=== PATIENT | male | born 1965 | race African-American/Black ===

== ENCOUNTER 2024-03-13 06:36 | Day surgery (SDC) | payer OTHER ==
[~2024-03-13] VITALS: Ht 172.7 cm; Wt 111.9 kg
[~2024-03-13 06:36] MED LIST: LR 1,000 ML IV SCH
[2024-03-13 08:18] VITALS: BP 117/76; PULSE 94; TEMP 97.6
[2024-03-13] MEDS ORDERED: OZEMPIC2 MG/0.75 SQ (08:23)
[2024-03-13] MEDS ORDERED: PRINIVIL10 MG PO (08:23)
[2024-03-13] MEDS ORDERED: FLOMAX 0.40.4 MG/CAP PO (08:25)
[2024-03-13] MEDS ORDERED: VITAMIN D 400400 IU PO (08:25)
[2024-03-13] MEDS ORDERED: CRESTOR 10MG10 MG (08:26)
[2024-03-13] MEDS ORDERED: Rocuronium 50 MG/5 ML Multi-Dose VIAL ONE (08:27)
[2024-03-13] MEDS ORDERED: fentaNYL 50 MCG/ML 5 ML VIAL ONE (08:27)
[2024-03-13] MEDS ORDERED: SYNJARDY 12.5-1 EACH PO (08:27)
[2024-03-13] MEDS ORDERED: Lidocaine PF 2% (20 MG/ML) 5 ML VIAL ONE (08:39)
[2024-03-13] MEDS ORDERED: dexAMETHasone 10 MG/ML VIAL ONE (08:51)
[2024-03-13] MEDS ORDERED: Ondansetron 4 MG/2 ML VIAL ONE (08:51)
[2024-03-13] MEDS ORDERED: LR 1,000 ML IV ONE (09:00)
[2024-03-13] MEDS ORDERED: Phenylephrine 10 MG/ML VIAL ONE (09:01)
[2024-03-13] MEDS ORDERED: droPERidol 2.5 MG/ML 2 ML VIAL IV PRN (09:15)
[2024-03-13] MEDS ORDERED: fentaNYL 50 MCG/ML 1 ML SYRINGE/VIAL [PACU/SDC ONLY] IV PRN (09:15)
[2024-03-13] MEDS ORDERED: Meperidine 50 MG/ML 1 ML VIAL IV PRN (09:15)
[2024-03-13] MEDS ORDERED: HYDROmorphone 1 MG/1 ML SYRINGE [PACU/SDC ONLY] IV PRN (09:15)
[2024-03-13] MEDS ORDERED: Morphine 2 MG/1 ML VIAL [PACU/SDC ONLY] IV PRN (09:15)
[2024-03-13] MEDS ORDERED: Ondansetron 4 MG/2 ML VIAL IV PRN ×2 (09:15→10:15)
[2024-03-13] MEDS ORDERED: Glycopyrrolate 0.2 MG/ML 1 ML VIAL ONE (09:52)
[2024-03-13] MEDS ORDERED: Neostigmine 1 MG/ML 10 ML Multi-Dose Vial ONE (09:52)
[2024-03-13] MEDS ORDERED: Morphine 4 MG/ML VIAL IV PRN (10:15)
[2024-03-13] MEDS ORDERED: NORCO 325 MG-51 TAB PO (10:21)
[2024-03-13 10:50] VITALS: BP 114/67; PULSE 76; TEMP 97.5
[2024-03-13 11:05] VITALS: BP 107/66; PULSE 76
[2024-03-13 11:09] VITALS: TEMP 98.2
[2024-03-13 11:20] VITALS: BP 109/61; PULSE 76
[2024-03-13 11:35] VITALS: BP 123/83; PULSE 78
--- NOTE | 2024-03-13 11:50 | NUR ---
1050 RETURNS TO ROOM 2 PER CART WITH HOB ELEVATED 30 DEGREES. RESP UNLABORED, O2 PER N/C. DROWSY, AROUSES TO VERBAL STIMULI. FAMILIARIZED WITH SURROUNDINGS. VITAL SIGNS OBTAINED. ABD SOFT. BANDAIDS X 3 SITES CLEAN DRY AND INTACT. NO REDNESS OR EDEMA OBSERVED. CALL LIGHT AT SIDE. IN ROOM 1105 DOZES AT INTERVALS. AT SIDE 1120 AWAKE, CONVERSES APPROPRIATELY. REPOSITIONS ON CART. HOB ELEVATED 60 DEGREES. TOLERATES PO WATER IN SIGNIFICANT AMOUNTS WITHOUT NAUSEA 1125 AWAKE, ALERT. DISCHARGE INSTRUCTIONS REVIEWED. PATIENT AND VERBALIZES UNDERSTANDING. COPY PROVIDED IN DISCHARGE FOLDER. 1140 SITS ON EDGE OF CART. DRESSES WITH ASSIST FROM
== END 2024-03-13 11:50 | disposition home or self-care (01) ==
LOC: SDCO 06:36
DX: K80.12 Calculus of gallbladder with acute and chronic cholecystitis without obstruction (principal); E11.9 Type 2 diabetes mellitus without complications; Z79.84 Long term (current) use of oral hypoglycemic drugs; Z79.85 Long-term (current) use of injectable non-insulin antidiabetic drugs
CPT/HCPCS: J0690; J1100; J1171; J2371; J2405; J2704; J2710; J3010; J7120